=== PATIENT | female | born 1975 | race Caucasian/White ===

== ENCOUNTER 2017-01-02 16:33 | Emergency (ER) | payer BC ==
[2017-01-02 16:52] VITALS: BP 163/60
--- NOTE | 2017-01-02 17:55 | RAD ---
INDICATION: Medial right ankle and lower leg pain x2 days without reported trauma COMPARISON: None. TECHNIQUE: 3 views of the right ankle and 2 views of the right lower leg were obtained. FINDINGS: The bones are normal alignment. Joint spaces appear maintained. No fracture is seen. IMPRESSION: NORMAL RIGHT LOWER LEG AND ANKLE RADIOGRAPH. If the patient's symptoms persist, follow-up imaging is recommended.
--- NOTE | 2017-01-02 18:27 | UC ---
Lower Extremity/Ankle HPI - HPI Summary HPI Summary: RIGHT (MEDIAL MALEOLAR) ANKLE PAIN, RADIATES TO (MEDIAL) SIDE OF LEG WITH OCCASIONAL BURNING TIMGLING IN (ANTEROMEDIAL) KNEE (AT PATELLA). NO SIGNIFICANT TRAUMA. NO FEVER. NO DISCOLORIZATION - History of Current Complaint Chief Complaint: UCLowerExtremity Stated Complaint: RIGHT ANKLE/LEG PAIN & NUMBNESS Time Seen by Provider: 01/02/17 17:24 Hx Obtained From: Patient Hx Last Menstrual Period: 12/04/16 Onset/Duration: Gradual Onset, Lasting Days, Still Present Severity Initially: Mild Severity Currently: Mild Aggravating Factor(s): Standing, Ambulation, Other - TOUCH TO MEDIAL RIGHT MALEOLUS Alleviating Factor(s): OTC Meds Able to Bear Weight: Yes - Risk Factors Gout Risk Factors: Negative DVT Risk Factors: Negative Septic Arthritis Risk Factor: Negative - Allergies/Home Medications Allergies/Adverse Reactions: Allergies Allergy/AdvReac Type Severity Reaction Status Date / Time Sulfa Antibiotics Allergy Rash Verified 01/02/17 16:52 Home Medications: Home Medications Aspirin [Aspirin 81 MG TAB] 81 mg PO DAILY 01/02/17 [History Confirmed 01/02/17] Glimepiride [Amaryl] 4 mg PO BID 01/02/17 [History Confirmed 01/02/17] PMH/Surg Hx/FS Hx/Imm Hx Previously Healthy: Yes Endocrine History Of: Reports: Diabetes - Type II Cardiovascular History Of: Reports: Hypertension - Surgical History Surgical History: Yes Surgery Procedure, Year, and Place: L shoulder, L carpal tunnel. right Achilles tendon 1992 - Family History Known Family History: Positive: None Negative: Other - NO CONNECTIVE TISSUE OR JOINT LAXITY HISTORY - Social History Occupation: Employed Full-time Lives: With Family Alcohol Use: Rare Substance Use Type: None Smoking Status (MU): Heavy Every Day Tobacco Smoker Type: Cigarettes Amount Used/How Often: 1/2 ppd Length of Time of Smoking/Using Tobacco: 24 yrs Have You Smoked in the Last Year: No When Did the Patient Quit Smoking/Using Tobacco: 08/12/14 - Immunization History Most Recent Influenza Vaccination: has not had Review of Systems Constitutional: Negative Skin: Negative Eyes: Negative ENT: Negative Respiratory: Negative Cardiovascular: Negative Gastrointestinal: Negative Genitourinary: Negative Motor: Negative Neurovascular: Negative Musculoskeletal: Arthralgia, Myalgia Neurological: Negative Psychological: Negative All Other Systems Reviewed And Are Negative: Yes Physical Exam Triage Information Reviewed: Yes Appearance: Well-Appearing, No Pain Distress, Well-Nourished Vital Signs: Initial Vital Signs Temp 98.6 F 01/02/17 16:47 Pulse 95 01/02/17 16:47 Resp 16 01/02/17 16:47 BP 163/60 01/02/17 16:47 Pulse Ox 100 01/02/17 16:47 Vital Signs Reviewed: Yes Eye Exam: Normal ENT Exam: Normal Dental Exam: Normal Neck exam: Normal Neck: Positive: Supple, Nontender, No Lymphadenopathy Respiratory Exam: Normal Respiratory: Positive: Chest non-tender, Lungs clear, Normal breath sounds, No respiratory distress, No accessory muscle use Cardiovascular Exam: Normal Cardiovascular: Positive: RRR, No Murmur, Pulses Normal, Brisk Capillary Refill Abdominal Exam: Normal Musculoskeletal: Positive: Strength Intact, ROM Intact, No Edema, Other: - NEGATIVE HOMANS; TENDER TO PALPATION OF MEDIAL MALLEOLUS Neurological Exam: Normal Psychological Exam: Normal Skin Exam: Normal Lower Extremity Course/Dx - Differential Dx/Diagnosis Differential Diagnosis/HQI/PQRI: Sprain, Strain Provider Diagnoses: RIGHT ANKLE ARTHRALGIA Discharge - Discharge Plan Condition: Stable Disposition: HOME Patient Education Materials: Ankle Sprain (ED) Forms: *Work Release Referrals: Andrea Zelaya MD [Medical Doctor] - Hosea Babb DO [Primary Care Provider] -
== END 2017-01-02 18:44 | disposition home or self-care (01) ==
LOC: UCCORT 16:33
DX: M25.571 Pain in right ankle and joints of right foot (principal); Z88.2 Allergy status to sulfonamides; E11.9 Type 2 diabetes mellitus without complications; Z79.84 Long term (current) use of oral hypoglycemic drugs; I10 Essential (primary) hypertension; F17.210 Nicotine dependence, cigarettes, uncomplicated
CPT/HCPCS: 99213; G0463

== ENCOUNTER → 2018-07-21 09:53 | Day surgery (SDC) | payer BC ==
[~2018-07-21 09:53] MED LIST: Buffered Lidocaine 0.9% SYRIN* 5 ML/SYR SYRINGE INTRADERM ONE; Bupivacaine 0.25% SDV PF* 10 ML VIAL INJ ONE; Lactated Ringers 1000 ML Bag* 1,000 ML IV SCH; Lidocaine 2% PF * 5 ML VIAL ONE; Naloxone* 0.4 MG/ML 1 ML VIAL IV PRN; Propofol* 10 MG/ML 20 ML BTL ONE; fentaNYL* 50 MCG/ML 2 ML VIAL (100 MCG VIAL) ONE
[2018-07-21 14:35] VITALS: BP 117/73
--- NOTE | 2018-07-22 04:12 | OP ---
DATE OF OPERATION: 07/21/18 - [facility] DATE OF : 73 SURGEON: Michel Gutiérrez MD AUTOMATIC ENGRAVER: EDILBERTO Mary ANESTHESIOLOGIST: Dr. Vang. ANESTHESIA: Local MAC. PRE-OP DIAGNOSES: 1. Right carpal tunnel syndrome. 2. Right volar wrist ganglion cyst. POST-OP DIAGNOSES: 1. Right carpal tunnel syndrome. 2. Right volar wrist ganglion cyst. OPERATIVE PROCEDURE: 1. Right carpal tunnel release. 2. Right volar wrist ganglion cyst excision. INDICATIONS: Kiesha has a cyst that waxes and wanes in size. It is associated with carpal tunnel type symptoms. We had talked about risks and benefits, she had wanted to proceed with surgery. ESTIMATED BLOOD LOSS: 2 mL. COMPLICATIONS: None. FINDINGS: See above and below. DESCRIPTION OF PROCEDURE: Kiesha was seen in the preoperative holding area. The correct site, side, and procedure were identified. We came back to the operating room. The arm was prepped and draped in the usual fashion and a time- out was performed. The arm was exsanguinated with an Esmarch and then tourniquet was inflated to 250 mmHg. I made a 2-cm incision in the proximal palm in the typical location for an open carpal tunnel release. Dissection was carried down through the subcutaneous tissue and palmar fascia. The transverse carpal ligament was released just off the radial aspect of the hook of the hamate. The release was completed distally and then proximally, the subcutaneous tissue was released and retracted out of the way and then the remainder of the transverse carpal ligament and distal antebrachial fascia was released with a tenotomy scissors. The release was checked and everything was looking good. So, we turned our attention to the cyst. A V-shaped ulnarly based flap was raised off the volar wrist ganglion cyst just a little bit distal to the radiocarpal joint. The flap was raised up off the cyst. The margin of the cyst was bluntly released taking care to preserve any traversing sensory nerves. I traced the cyst all the way back to where it came off the wrist joint, which was just near the volar carpus. The cyst was amputated at the base of the wound. The area was very gently cauterized with the median nerve gently retracted out of the way, so as to not to cauterize the median nerve. This was all done very carefully and with very low power cautery. Once I cauterized the base of the cyst, I irrigated out both wounds. The skin was closed with 4-0 nylon suture. She was placed in a volar cock-up wrist splint. Tourniquet was deflated and she was taken to the recovery room in stable condition. [id number]/[facility] #: [id number] TORRES
== END | disposition home or self-care (01) ==
LOC: OR 09:53
PROVIDERS: ATTEND Orthopaedic Surgery Hand Surgery
DX: G56.01 Carpal tunnel syndrome, right upper limb (principal); M67.431 Ganglion, right wrist; I10 Essential (primary) hypertension; E11.9 Type 2 diabetes mellitus without complications; Z79.84 Long term (current) use of oral hypoglycemic drugs
CPT/HCPCS: 81025; 88304; J2704; J3010; J3490

== ENCOUNTER 2019-07-11 20:25 | Emergency (ER) | payer BC ==
[2019-07-11 20:45] VITALS: BP 135/92
--- NOTE | 2019-07-11 20:55 | UC ---
Back Pain HPI - HPI Summary HPI Summary: Mid back pain for over a week. Pt used "[facility]" and was prescribed prednisone , flonase, tessalon pearls.She wa dx with bronchitis. Pt finished meds. Pt states the back pain started with the cough. Pt is feeling better as far as the cough goes . Still has the back pain. When she looks down or bends over she becomes dizzy at times. - History of Current Complaint Chief Complaint: UCBackPain Stated Complaint: BACK PAIN Time Seen by Provider: 07/11/19 20:37 Hx Obtained From: Patient Hx Last Menstrual Period: uterine ablasion in 2017 ?: No Onset/Duration: Sudden Onset, Lasting Days Severity Initially: Moderate Severity Currently: Severe Pain Intensity: 8 Character: Dull, Burning Aggravating Factor(s): Bending Alleviating Factor(s): Position - Allergies/Home Medications Allergies/Adverse Reactions: Allergies Allergy/AdvReac Type Severity Reaction Status Date / Time Sulfa (Sulfonamide Allergy Rash Verified 07/11/19 20:33 Antibiotics) Home Medications: Home Medications Hydrochlorothiazide TAB* [Hydrodiuril TAB*] 12.5 mg PO DAILY 07/11/19 [History Confirmed 07/11/19] PMH/Surg Hx/FS Hx/Imm Hx Previously Healthy: Yes - Surgical History Surgical History: Yes Surgery Procedure, Year, and Place: L shoulder, L carpal tunnel. right Achilles tendon 1992. D&C-2016. 10/2017-ENDOMETRIAL ABLATION. right carpal kieran - Family History Known Family History: Positive: None, Respiratory Disease Negative: Other - NO CONNECTIVE TISSUE OR JOINT LAXITY HISTORY - Social History Alcohol Use: Rare Substance Use Type: None Smoking Status (MU): Light Every Day Tobacco Smoker Type: Cigarettes Amount Used/How Often: 1/2 ppd OR LESS X 25 YEARS Length of Time of Smoking/Using Tobacco: 24 yrs Have You Smoked in the Last Year: Yes When Did the Patient Quit Smoking/Using Tobacco: 08/12/14 Household Exposure Type: Cigarettes - Immunization History Most Recent Influenza Vaccination: has not had Review of Systems All Other Systems Reviewed And Are Negative: Yes Respiratory: Positive: Cough Musculoskeletal: Positive: Myalgia Is Patient Immunocompromised?: No Physical Exam Triage Information Reviewed: Yes Appearance: Well-Appearing, Well-Nourished, Pain Distress Vital Signs: Initial Vital Signs Temp 98.2 F 07/11/19 20:35 Pulse 91 07/11/19 20:35 Resp 16 07/11/19 20:35 BP 135/92 07/11/19 20:35 Pulse Ox 99 07/11/19 20:35 Vital Signs Reviewed: Yes Eye Exam: Normal ENT Exam: Normal Dental Exam: Normal Neck exam: Normal Respiratory: Positive: Chest non-tender, Lungs clear, Normal breath sounds, Other: - harsh cough Abdominal Exam: Normal Abdomen Description: Positive: Nontender, No Organomegaly, Soft Bowel Sounds: Positive: Present Musculoskeletal: Positive: Strength Intact, ROM Intact, No Edema, Other: - pain with flex and ext of the thoracic spine, and retraction of the scapula Back Pain Course/Dx - Course Course Of Treatment: hx obtained, exam performed ,meds reviewed, xray obtained, radiologist read pending. flexeril given for muscle spasm - Differential Dx/Diagnosis Differential Diagnosis/HQI/PQRI: Strain, Sprain Provider Diagnosis: Back muscle spasm Discharge ED - Sign-Out/Discharge Documenting (check all that apply): Patient Departure All imaging exams completed and their final reports reviewed: No Studies - Discharge Plan Condition: Stable Disposition: HOME Prescriptions: Cyclobenzaprine TAB* [Flexeril 10 MG TAB*] 10 mg PO TID PRN #15 tab PRN Reason: Spasms Referrals: Maddison Cedeño PA [Primary Care Provider] - - Billing Disposition and Condition Condition: STABLE Disposition: Home
[2019-07-11] MEDS ORDERED: Cyclobenzaprine TAB* 10 MG PO ONE (21:15)
--- NOTE | 2019-07-11 22:03 | UC ---
Course/Dx - Diagnoses Provider Diagnoses: Back muscle spasm Discharge ED - Sign-Out/Discharge Documenting (check all that apply): Patient Departure All imaging exams completed and their final reports reviewed: No - Discharge Plan Condition: Stable Disposition: HOME Prescriptions: Cyclobenzaprine TAB* [Flexeril 10 MG TAB*] 10 mg PO TID PRN #15 tab PRN Reason: Spasms Patient Education Materials: Muscle Spasm (ED) Referrals: Maddison Cedeño PA [Primary Care Provider] - Andrea Zelaya MD [Medical Doctor] - Additional Instructions: 1. use the flexeril as needed. 2. Stretch the back with arms over head 3. follow up with Dr zelaya if not improving in the next 7-10 days - Billing Disposition and Condition Condition: STABLE Disposition: Home
--- NOTE | 2019-07-12 09:01 | UC ---
- Progress Note Progress Note: Final radiologist reading for thoracic spine x-ray from July 11, 2019 comes back as no acute process. Provider report of the same date does not mention fracture therefore there is no discrepancy. Course/Dx - Diagnoses Provider Diagnoses: Back muscle spasm Discharge ED - Sign-Out/Discharge Documenting (check all that apply): Patient Departure All imaging exams completed and their final reports reviewed: Yes - Discharge Plan Condition: Stable Disposition: HOME Prescriptions: Cyclobenzaprine TAB* [Flexeril 10 MG TAB*] 10 mg PO TID PRN #15 tab PRN Reason: Spasms Patient Education Materials: Muscle Spasm (ED) Referrals: Maddison Cedeño PA [Primary Care Provider] - Andrea Zelaya MD [Medical Doctor] - Additional Instructions: 1. use the flexeril as needed. 2. Stretch the back with arms over head 3. follow up with Dr zelaya if not improving in the next 7-10 days - Billing Disposition and Condition Condition: STABLE Disposition: Home
== END 2019-07-11 21:25 | disposition home or self-care (01) ==
LOC: UCCORT 20:25
DX: M62.830 Muscle spasm of back (principal); R05 Cough; R42 Dizziness and giddiness; F17.210 Nicotine dependence, cigarettes, uncomplicated; Z88.2 Allergy status to sulfonamides
CPT/HCPCS: 72070; 99212; A9270-GY; G0463